=== PATIENT | female | born 1995 | race Caucasian/White ===

== ENCOUNTER 2016-08-12 11:08 | Emergency (ER) | payer SELFPAY ==
[~2016-08-12] VITALS: Ht 160 cm; Wt 65.8 kg
[2016-08-12 12:11] VITALS: BP 114/55
--- NOTE | 2016-08-12 13:28 | NUR ---
Patient ambulated to bed 06.
--- NOTE | 2016-08-12 13:31 | NUR ---
20/F c/o N/V/D, epigastric abdominal pain x 1 week, last Thursday. Pt also c/o migraine headaches, denies headache at this time but reports she had a headache while driving last week that was so severe she states "My vision went blind." No changes in vision at this time. Pt reports having blood in emesis last Thursday x2 episodes. No vomiting noted today while in bed. AOX4, ambulatory with steady gait. VSS.
--- NOTE | 2016-08-12 13:40 | NUR ---
Patient being evaluated by Dr. Kim at bedside.
[2016-08-12] MEDS ORDERED: NACL 0.9% 1,000 ML IV ONE (13:45)
[2016-08-12] MEDS ORDERED: ONDANSETRON 4 MG/2 ML VIAL IVP ONE (13:45)
[2016-08-12] MEDS ORDERED: KETOROLAC 30 MG/ML VIAL IVP ONE (13:45)
[2016-08-12 13:59] LABS: BASOPHILS # (AUTO) 0.3 K/uL (0.00-0.22); BASOPHILS % (AUTO) 4.3 % (0.0-2.0); EOSINOPHILS # (AUTO) 0.1 K/uL (0-0.4); HEMATOCRIT 39.9 % (36-48); HEMOGLOBIN 13.2 g/dL (12.0-16.0); LYMPHOCYTES # (AUTO) 2.2 K/uL (2.5-16.5); LYMPHOCYTES % (AUTO) 32.9 % (20.5-51.1); MEAN CORPUSCULAR HEMOGLOBIN 28 pg (27-31); MEAN CORPUSCULAR HGB CONC 33 g/dL (33-37); MEAN CORPUSCULAR VOLUME 84 fL (80-94); MONOCYTES # (AUTO) 0.5 K/uL (0.8-1.0); MONOCYTES % (AUTO) 8.1 % (1.7-9.3); NEUTROPHILS # (AUTO) 3.6 K/uL (1.8-7.7); NEUTROPHILS % (AUTO) 52.7 % (42.2-75.2); PLATELET COUNT (AUTO) 239 K/uL (140-450); RED BLOOD CELL COUNT(AUTO) 4.74 MIL/uL (4.20-5.40); RED CELL DISTRIBUTION WIDTH 12.9 % (11.6-13.7); WHITE BLOOD COUNT (AUTO) 6.7 K/uL (4.8-10.8)
[2016-08-12 14:01] LABS: APPEARANCE,URINE HAZY (CLEAR); BILIRUBIN,URINE NEGATIVE (NEGATIVE); BLOOD, URINE TRACE-I (NEGATIVE); COLOR,URINE YELLOW (YELLOW); LEUKOCYTE ESTERASE ,URINE NEGATIVE (NEGATIVE); NITRITE, URINE NEGATIVE (NEGATIVE); PH,URINE 7.5 (5.0-9.0); PROTEIN,URINE NEGATIVE (NEGATIVE); UGLUCOSE NEGATIVE (NEGATIVE); UROBILINOGEN,URINE 0.2 EU/dL (0.2 - 1)
[2016-08-12 14:19] LABS: ALBUMIN 4.1 g/dL (3.4-5.0); ANION GAP 10.4 (8-16); CARBON DIOXIDE 29.8 mmol/L (21-32); CREATININE 0.7 mg/dL (0.6-1.3); POTASSIUM 4.2 mmol/L (3.5-5.1); TOTAL BILIRUBIN 0.8 mg/dL (0.0-1.0); TOTAL PROTEIN, SERUM 8.1 g/dL (6.4-8.2)
[2016-08-12 14:33] LABS: PARTIAL THROMBOPLASTIN TIME 32.2 secs (22-35.6); PROTHROMBIN TIME 9.9 secs (10.8-13.4)
--- NOTE | 2016-08-12 14:38 | NUR ---
Patient appears to be resting comfortably in bed. Vital Signs within normal limits. Respirations even and unlabored. Water provided.
[2016-08-12 14:39] LABS: BACTERIA,URINE 2+ /HPF (None Seen); RBC,URINE 0-5 (RARE) /HPF (0-5); WBC,URINE 0-5 (RARE) /HPF (0-5)
[2016-08-12 14:40] LABS: SQUAMOUS EPITHELIAL CELL,UR 20-50 /LPF (0-3 (FEW))
--- NOTE | 2016-08-12 15:16 | NUR ---
Patient discharged with v/s stable. Written and verbal after care instructions given and explained. Patient alert, oriented and verbalized understanding of instructions. Ambulatory with steady gait. All questions addressed prior to discharge. ID band removed. Patient advised to follow up with PMD. Rx of TRANADOL,ZOFRAN AND ANTIVERT given. Patient educated on indication of medication including possible reaction and side effects. Opportunity to ask questions provided and answered.
[2016-08-12 15:17] VITALS: BP 112/69
== END 2016-08-12 15:16 | disposition home or self-care (01) ==
LOC: MED 11:08
DX: R42 Dizziness and giddiness (principal); R11.10 Vomiting, unspecified; R19.7 Diarrhea, unspecified; R10.13 Epigastric pain
CPT/HCPCS: 36415; 80053; 81001; 81025; 82150; 83690; 85025; 85610; 85730; 87086; 96361; 96374; 96375; 99284; J1885; J2405; J7030

== ENCOUNTER 2016-11-10 20:36 | Emergency (ER) | payer OTHER ==
[~2016-11-10] VITALS: Ht 160 cm; Wt 65.8 kg
[2016-11-10 20:45] VITALS: BP 110/75
--- NOTE | 2016-11-10 20:55 | NUR ---
PT TAKEN TO OF
--- NOTE | 2016-11-10 20:56 | NUR ---
Dr. Zapata evaluating patient
--- NOTE | 2016-11-10 20:57 | NUR ---
PT BIB FAMILY C/O LEFT ARM PAIN, S/P UNPLUGGING LAPTOP AT 1645 HOURS. NO TRAUMA NOTED TO BILAT ARMS-CAP REFILL-IMM. R.O.M.-WNL. PT DENIES N/V/D; SKIN IS INTACT, PINK/WARM/DRY; AAOX4, PERRL, WITH EVEN AND STEADY GAIT; LUNGS CLEAR BL, BREATHING UNLABORED; HR EVEN AND REGULAR, BL PERIPHERAL PULSES PRESENT; BS ACTIVE X4, NO TENDERNESS TO PALPATION. PT DENIES ANY FEVER, CP, SOB, OR COUGH AT THIS TIME; PT STATES 5/10 PAIN AT THIS TIME; VSS; PATIENT POSITIONED FOR COMFORT; HOB ELEVATED; BEDRAILS UP X2; BED DOWN.
[2016-11-10] MEDS ORDERED: DIAZEPAM 5 MG TAB PO ONE (21:05)
[2016-11-10] MEDS ORDERED: KETOROLAC 30 MG/ML VIAL IM ONE (21:05)
--- NOTE | 2016-11-10 21:15 | NUR ---
PHLEB DRAWING LABS
--- NOTE | 2016-11-10 21:33 | NUR ---
PO/IM MEDS GIVEN-NADR AT THIS TIME.
[2016-11-10 21:36] LABS: ANION GAP 10.9 (8-16); CARBON DIOXIDE 29.8 mmol/L (21-32); CREATININE 0.9 mg/dL (0.6-1.3); POTASSIUM 3.7 mmol/L (3.5-5.1)
--- NOTE | 2016-11-10 22:18 | NUR ---
PT MOVE TO BED 5
--- NOTE | 2016-11-10 23:20 | NUR ---
Patient discharged with v/s stable. Written and verbal after care instructions given and explained. Patient alert, oriented and verbalized understanding of instructions. Ambulatory with steady gait. All questions addressed prior to discharge. ID band removed. Patient advised to follow up with PMD. Rx of NAPROSYN 500MG BID/PRN given. Patient educated on indication of medication including possible reaction and side effects. Opportunity to ask questions provided and answered.
[2016-11-10 23:21] VITALS: BP 109/72
[2016-11-12] MEDS ORDERED: NAPR500T1 PO (12:08)
== END 2016-11-10 23:20 | disposition home or self-care (01) ==
LOC: MED 20:36
DX: M62.838 Other muscle spasm (principal); R53.1 Weakness
CPT/HCPCS: 36415; 80048; 82550; 93005; 96372; 99285; J1885

== ENCOUNTER 2019-11-13 01:15 | Emergency (ER) | payer MEDICAID, OTHER ==
[~2019-11-13] VITALS: Ht 160 cm; Wt 78.5 kg
[~2019-11-13 01:15] MED LIST: NAPR-54 PO
[2019-11-13 01:19] VITALS: BP 128/70
--- NOTE | 2019-11-13 01:23 | NUR ---
PT AMBULATED TO BED 12 WITH STEADY GAIT.
--- NOTE | 2019-11-13 01:33 | NUR ---
URINE SAMPLE PROVIDED
--- NOTE | 2019-11-13 02:11 | NUR ---
24 Y/O F PRESENTS TO ED C/O VAGINAL BLEEDING X 1 DAY ACCOMPANIED BY LOWER ABD PAIN THAT RADIATES TO THE LEFT SIDE. PT IS 6 WEEKS WITH A HISTORY OF MISCARRIAGE. PT STATES THAT BLEEDING STARTED OUT SPOTTING AND IS NOW HEAVIER. AIRWAY INTACT, RR EVEN AND UNLABORED, LUNG SOUDNS CLEAR UPON AUSCULTATION. VSS. MHX: MISCARRIAGE NKA
--- NOTE | 2019-11-13 02:11 | NUR ---
LABS AND URINE COLLECTED AND GIVEN TO LAB.
[2019-11-13 02:24] LABS: BASOPHILS % (AUTO) 0.3 % (0.0-2.0); EOSINOPHILS # (AUTO) 0.2 K/uL (0-0.4); EOSINOPHILS % (AUTO) 1.8 % (0.0-4.0); HEMATOCRIT 38.3 % (36-48); HEMOGLOBIN 12.9 g/dL (12.0-16.0); LYMPHOCYTES # (AUTO) 2.6 K/uL (2.5-16.5); LYMPHOCYTES % (AUTO) 30.4 % (20.5-51.1); MEAN CORPUSCULAR HEMOGLOBIN 31 pg (27-31); MEAN CORPUSCULAR HGB CONC 34 g/dL (33-37); MEAN CORPUSCULAR VOLUME 90.8 fL (80-94); MONOCYTES # (AUTO) 0.6 K/uL (0.8-1.0); MONOCYTES % (AUTO) 7.4 % (1.7-9.3); NEUTROPHILS # (AUTO) 5.2 K/uL (1.8-7.7); NEUTROPHILS % (AUTO) 60.1 % (42.2-75.2); PLATELET COUNT (AUTO) 266 K/uL (140-450); RED BLOOD CELL COUNT(AUTO) 4.21 MIL/uL (4.20-5.40); RED CELL DISTRIBUTION WIDTH 13.3 % (11.6-13.7); WHITE BLOOD COUNT (AUTO) 8.6 K/uL (4.8-10.8)
[2019-11-13 02:30] LABS: APPEARANCE,URINE CLEAR (CLEAR); BILIRUBIN,URINE NEGATIVE (NEGATIVE); BLOOD, URINE 1+ (NEGATIVE); LEUKOCYTE ESTERASE ,URINE NEGATIVE (NEGATIVE); NITRITE, URINE NEGATIVE (NEGATIVE); PH,URINE 6.5 (5.0-9.0); UGLUCOSE NEGATIVE (NEGATIVE)
--- NOTE | 2019-11-13 02:40 | NUR ---
US AT BEDSIDE
[2019-11-13 02:45] LABS: ALBUMIN 3.8 g/dL (3.4-5.0); ANION GAP 11.7 (8-16); CARBON DIOXIDE 25.9 mmol/L (21-32); CREATININE 0.7 mg/dL (0.6-1.3); POTASSIUM 3.6 mmol/L (3.5-5.1); TOTAL BILIRUBIN 0.6 mg/dL (0.0-1.0)
[2019-11-13 02:56] LABS: COLOR,URINE YELLOW (YELLOW)
[2019-11-13 02:58] LABS: RBC,URINE 0-5 /HPF (0-5); WBC,URINE NONE SEEN /HPF (0-5)
[2019-11-13 04:17] VITALS: BP 128/70
--- NOTE | 2019-11-13 04:17 | NUR ---
Patient discharged with v/s stable. Written and verbal after care instructions given and explained. Patient verbalized understanding. Ambulatory with steady gait. All questions addressed prior to discharge. Advised to follow up with PMD.
== END 2019-11-13 04:17 | disposition home or self-care (01) ==
LOC: MED 01:15
DX: O20.0 Threatened abortion (principal); Z79.899 Other long term (current) drug therapy; Z3A.16 16 weeks gestation of pregnancy
CPT/HCPCS: 36415; 76817; 80053; 81001; 84702; 85025; 86900; 86901; 99284; Q0092

== ENCOUNTER 2020-02-21 00:24 | Emergency (ER) | payer OTHER ==
[~2020-02-21] VITALS: Ht 160 cm; Wt 78.5 kg
[2020-02-21 00:30] VITALS: BP 123/69
--- NOTE | 2020-02-21 00:30 | NUR ---
TO TENT #01 AMBULATORY
--- NOTE | 2020-02-21 01:00 | NUR ---
SEEN AND EXAMINED BY DONNA WITH ORDERS, CARRIED OUT
--- NOTE | 2020-02-21 01:20 | NUR ---
SWAB DONE AND SENT TO LAB
[2020-02-21 01:30] VITALS: BP 123/69
--- NOTE | 2020-02-21 01:30 | NUR ---
Patient discharged with v/s stable. Written and verbal after care instructions given and explained. Patient alert, oriented and verbalized understanding of instructions. Ambulatory with steady gait. All questions addressed prior to discharge. ID band removed. Patient advised to follow up with PMD. Rx of ZOFRAN 8 MG given. Patient educated on indication of medication including possible reaction and side effects. Opportunity to ask questions provided and answered.
--- NOTE | 2020-02-24 14:41 | NUR ---
Covid results received from lab. Results = POSITIVE. Hard copy requested from lab and placed in infection controls mailbox.
== END 2020-02-21 01:30 | disposition home or self-care (01) ==
LOC: MED 00:24
DX: U07.1 COVID-19 (principal); R11.0 Nausea; Z79.899 Other long term (current) drug therapy
CPT/HCPCS: 99283; U0003

== ENCOUNTER 2020-04-15 07:05 | Observation (INO) | payer OTHER, SELFPAY ==
[~2020-04-15] VITALS: Ht 160 cm; Wt 85.7 kg
[2020-04-15 08:05] VITALS: BP 105/55
[2020-04-15] MEDS ORDERED: PNV91TAB8 PO (08:11)
[2020-04-15] MEDS ORDERED: cefTRIAXone 1,000 MG in LIDOCAINE MPF 1% 2.1 ML INJ SCH (08:35)
[2020-04-15] MEDS ORDERED: ACETAMINOPHEN EXTRA STRENGTH 500 MG TAB PO PRN (08:40)
[2020-04-15 08:45] LABS: BASOPHILS % (AUTO) 0.7 % (0.0-2.0); EOSINOPHILS # (AUTO) 0.1 K/uL (0-0.4); EOSINOPHILS % (AUTO) 1.9 % (0.0-4.0); HEMATOCRIT 29.4 % (36-48); HEMOGLOBIN 10.1 g/dL (12.0-16.0); LYMPHOCYTES # (AUTO) 1.8 K/uL (2.5-16.5); LYMPHOCYTES % (AUTO) 29.9 % (20.5-51.1); MEAN CORPUSCULAR HEMOGLOBIN 31 pg (27-31); MEAN CORPUSCULAR HGB CONC 34 g/dL (33-37); MEAN CORPUSCULAR VOLUME 90.5 fL (80-94); MONOCYTES # (AUTO) 0.6 K/uL (0.8-1.0); MONOCYTES % (AUTO) 9.6 % (1.7-9.3); NEUTROPHILS # (AUTO) 3.5 K/uL (1.8-7.7); NEUTROPHILS % (AUTO) 57.9 % (42.2-75.2); PLATELET COUNT (AUTO) 214 K/uL (140-450); RED BLOOD CELL COUNT(AUTO) 3.25 MIL/uL (4.20-5.40); RED CELL DISTRIBUTION WIDTH 13.4 % (11.6-13.7)
[2020-04-15] MEDS ORDERED: LIDOCAINE 1% 500 MG/50 ML VIAL ONE (09:03)
[2020-04-15] MEDS ORDERED: cefTRIAXone 1,000 MG VIAL ONE (09:03)
[2020-04-15] MEDS ORDERED: LIDOCAINE MPF 1% 10 MG/ML VIAL INJ SCH (09:05)
[2020-04-15 09:30] LABS: APPEARANCE,URINE CLEAR (CLEAR); BILIRUBIN,URINE NEGATIVE (NEGATIVE); BLOOD, URINE TRACE-I (NEGATIVE); COLOR,URINE YELLOW (YELLOW); LEUKOCYTE ESTERASE ,URINE TRACE (NEGATIVE); NITRITE, URINE NEGATIVE (NEGATIVE); PH,URINE 6.5 (5.0-9.0); UGLUCOSE NEGATIVE (NEGATIVE)
[2020-04-15 09:34] LABS: ALBUMIN 2.9 g/dL (3.4-5.0); ANION GAP 16.2 (8-16); CARBON DIOXIDE 22.2 mmol/L (21-32); CREATININE 0.6 mg/dL (0.6-1.3); POTASSIUM 3.4 mmol/L (3.5-5.1)
--- NOTE | 2020-04-15 09:47 | NUR ---
PATIENT HAS BEEN SCREENED AND CATEGORIZED LOW NUTRITION RISK. PATIENT WILL BE SEEN WITHIN 7 DAYS OF ADMISSION. 04/22/20 KANDICE AARON MBA, RD
[2020-04-15 11:31] LABS: TOTAL BILIRUBIN 0.5 mg/dL (0.0-1.0)
[2020-04-15 11:57] LABS: RBC,URINE 0-5 /HPF (0-5); WBC,URINE 0-5 /HPF (0-5)
== END 2020-04-15 13:45 | disposition home or self-care (01) ==
LOC: MLD 07:05
PROVIDERS: ADMIT Obstetrics & Gynecology; ATTEND Obstetrics & Gynecology
DX: O23.593 Infection of other part of genital tract in pregnancy, third trimester (principal); B96.89 Other specified bacterial agents as the cause of diseases classified elsewhere; O46.93 Antepartum hemorrhage, unspecified, third trimester; Z86.16 Personal history of COVID-19; Z3A.28 28 weeks gestation of pregnancy
CPT/HCPCS: 36415; 76817; 80053; 81001; 85025; 87070; 87086; 87205; 87491; 96372; G0378; J0696; J2001; 87075

== ENCOUNTER 2023-09-03 09:06 | Emergency (ER) | payer OTHER ==
[~2023-09-03] VITALS: Ht 160 cm; Wt 72.6 kg
[~2023-09-03 09:06] MED LIST changes: -NAPR-54 PO; +PNV91TAB8 PO
[2023-09-03 09:10] VITALS: BP 114/78; PULSE 86; RESP 20; TEMP 97.3; O2SAT 98
[2023-09-03] MEDS ORDERED: ACET-8905 PO (10:29)
[2023-09-03] MEDS ORDERED: PENI500T20 PO (10:29)
[2023-09-03 10:37] VITALS: BP 113/81; PULSE 83; RESP 18; TEMP 98.4; O2SAT 100
== END 2023-09-03 10:37 | disposition home or self-care (01) ==
LOC: MED 09:06
DX: L03.211 Cellulitis of face (principal); K04.7 Periapical abscess without sinus; Z79.1 Long term (current) use of non-steroidal anti-inflammatories (NSAID); Z79.2 Long term (current) use of antibiotics; Z79.899 Other long term (current) drug therapy
CPT/HCPCS: 81025; 99283